=== PATIENT | male | born 1955 | race Caucasian/White ===

== ENCOUNTER 2018-08-22 08:56 | Day surgery (SDC) | payer OTHER ==
[2018-08-21 10:38] LABS: BASOPHILS % (AUTO) 0.6 % (0.0-5.0); EOSINOPHILS % (AUTO) 0.7 % (0.0-8.0); HEMATOCRIT 38.9 % (42-54); LYMPHOCYTES % (AUTO) 23.1 % (21.0-51.0); MEAN CORPUSCULAR HEMOGLOBIN 25.5 pg (27.0-33.0); MEAN CORPUSCULAR VOLUME 77.5 fL (79-99); MONOCYTES % (AUTO) 6.5 % (3.0-13.0); NEUTROPHILS % (AUTO) 69.1 % (40.0-77.0); PLATELET COUNT (AUTO) 199 K/uL (130-400); RED BLOOD CELL COUNT(AUTO) 5.03 MIL/uL (4.50-6.20); RED CELL DISTRIBUTION WIDTH 16.2 % (11.0-15.5); WHITE BLOOD COUNT (AUTO) 7.3 K/uL (4.8-10.8)
[2018-08-21 10:45] LABS: CREATININE 0.9 mg/dL (0.5-1.5); POTASSIUM 3.6 mmol/L (3.5-5.1)
[~2018-08-22] VITALS: Ht 170.2 cm; Wt 76.0 kg
[2018-08-22] VITALS (19 sets, daily range): BP systolic 85–126; BP diastolic 50–71
[~2018-08-22 08:56] MED LIST: ALBUTEROL IH; AMLO2.5T3 PO; ASPI-555 PO; ATOR40TA71 PO; DICL2100G TP; FLUO-126 PO; GABA-533 PO; HYDR25TA PO; INSU100V12 SQ; IPRAT IH; LISI-613 PO; METF-444 PO; OMEP20CA10 PO; ROPI3TAB5 PO; VARE1TAB22 PO
[2018-08-22] MEDS ORDERED: LACTATED RINGERS 1000ML 0 ML IV ONE (09:53)
[2018-08-22] MEDS ORDERED: SODIUM CHLORIDE 0.9% 1000ML 1,000 ML IV ONE (10:13)
[2018-08-22] MEDS ORDERED: BUPIVACAINE/EPI/PF 0.25% 30ML VIAL IJ ONE (10:48)
[2018-08-22] MEDS ORDERED: EPINEPHRINE 1 MG/ML 30ML VIAL IJ ONE (10:48)
[2018-08-22] MEDS: CEFAZOLIN SODIUM 1 GM VIAL IVP SCH ×2 (11:11→11:50)
[2018-08-22] MEDS ORDERED: SUCCINYLCHOLINE 200MG/10ML SYR ONE (11:23)
[2018-08-22] MEDS ORDERED: LIDOCAINE PF 2% 5ML ABBOJECT ONE (11:23)
[2018-08-22] MEDS ORDERED: ONDANSETRON HCL 4 MG/2 ML VIAL ONE (11:23)
[2018-08-22] MEDS ORDERED: MIDAZOLAM HCL 1 MG/ML 2ML VIAL ONE (11:24)
[2018-08-22] MEDS ORDERED: NEOSTIGMINE 5MG/5ML SYR IV ONE (11:24)
[2018-08-22] MEDS ORDERED: PROPOFOL 10 MG/ML 20ML VIAL IV ONE (11:24)
[2018-08-22] MEDS ORDERED: ROCURONIUM 10MG/1ML SYR 10 MG/ML ML ONE (11:25)
[2018-08-22] MEDS ORDERED: FENTANYL CITRATE PF 50 MCG/1 ML 2ML VIAL ONE (11:25)
[2018-08-22] MEDS ORDERED: EPHEDRINE SULFATE 50 MG/ML AMPULE ONE (11:57)
[2018-08-22] MEDS ORDERED: PHENYLEPHRINE HCL 10 MG/ML 1ML VIAL IV ONE (12:41)
[2018-08-22] MEDS ORDERED: GLYCOPYRROLATE 1 MG/5 ML SYRINGE ONE (13:52)
[2018-08-22] MEDS ORDERED: SUB TO ALBUTEROL 2.5MG/3ML NEBULES PER P&T IH ONE (13:59)
[2018-08-22] MEDS ORDERED: IPRATROPIUM/ALBUTEROL SULFATE 3 ML SOLUTION IH ONE ×2 (14:27→15:31)
[2018-08-22] MEDS ORDERED: HYDR-309 PO (14:33)
[2018-08-22] MEDS ORDERED: CEPH500B PO (14:33)
== END 2018-08-22 17:25 | disposition home or self-care (01) ==
LOC: DAH 08:56
PROVIDERS: ATTEND Orthopaedic Surgery
DX: S43.51XA Sprain of right acromioclavicular joint, initial encounter (principal); X58.XXXA Exposure to other specified factors, initial encounter; Y93.9 Activity, unspecified; Y92.89 Other specified places as the place of occurrence of the external cause; Y99.9 Unspecified external cause status; M75.101 Unspecified rotator cuff tear or rupture of right shoulder, not specified as traumatic; M75.41 Impingement syndrome of right shoulder; M19.011 Primary osteoarthritis, right shoulder; G89.29 Other chronic pain; Z98.890 Other specified postprocedural states; Z79.899 Other long term (current) drug therapy; K21.9 Gastro-esophageal reflux disease without esophagitis; I25.10 Atherosclerotic heart disease of native coronary artery without angina pectoris; I10 Essential (primary) hypertension; E11.9 Type 2 diabetes mellitus without complications; M19.90 Unspecified osteoarthritis, unspecified site; Z95.1 Presence of aortocoronary bypass graft; Z79.4 Long term (current) use of insulin; Z79.84 Long term (current) use of oral hypoglycemic drugs; Z82.49 Family history of ischemic heart disease and other diseases of the circulatory system; Z83.3 Family history of diabetes mellitus; Z80.49 Family history of malignant neoplasm of other genital organs; Z53.33 Arthroscopic surgical procedure converted to open procedure
CPT/HCPCS: 23120; 23412; 36415; 71045; 80048; 82948 ×2; 85025; 94640 ×2; A4218; A4649 ×2; A4930 ×2; A6204; C1713 ×2; J0171; J0330; J0690; J2001; J2250; J2370; J2405; J2704; J2710; J3010; J3490 ×3; J7030 ×2; J7120

== ENCOUNTER 2019-01-31 21:07 | Emergency (ER) | payer OTHER ==
[~2019-01-31 21:07] MED LIST changes: -AMLO2.5T3 PO; +AMLO2.5T4 PO; +CEPH500B PO; +HYDR-4457 PO
[2019-01-31] MEDS ORDERED: ASPIRIN 325 MG TABLET ONE (21:38)
[2019-01-31 21:42] LABS: EOSINOPHILS % (AUTO) 1.3 % (0.0-8.0); HEMATOCRIT 38.8 % (42-54); LYMPHOCYTES % (AUTO) 31.4 % (21.0-51.0); MEAN CORPUSCULAR HEMOGLOBIN 26.9 pg (27.0-33.0); MEAN CORPUSCULAR HGB CONC 33.6 g/dL (32.0-36.0); MEAN CORPUSCULAR VOLUME 80.2 fL (79-99); MONOCYTES % (AUTO) 5.7 % (3.0-13.0); NEUTROPHILS % (AUTO) 60.6 % (40.0-77.0); NUCLEATED RED BLOOD CELLS 0.1 % (0.0-0.19); PLATELET COUNT (AUTO) 188 K/uL (130-400); RED BLOOD CELL COUNT(AUTO) 4.84 MIL/uL (4.50-6.20); WHITE BLOOD COUNT (AUTO) 7.1 K/uL (4.8-10.8)
[2019-01-31 21:56] LABS: CREATININE 1.2 mg/dL (0.5-1.5); POTASSIUM 4.1 mmol/L (3.5-5.1)
[2019-01-31 21:58] LABS: APPEARANCE,URINE Clear (CLEAR); BILIRUBIN,URINE Negative (NEGATIVE); COLOR,URINE Yellow (YELLOW); GLUCOSE, URINE (UA) >=1000 mg/dL (NEGATIVE); KETONES,URINE Negative (NEGATIVE); LEUKOCYTE ESTERASE ,URINE Negative (NEGATIVE); NITRATE,URINE Negative (NEGATIVE); OCCULT BLOOD,URINE Negative (NEGATIVE); PH,URINE 5.5 (5.0-8.0); PROTEIN,URINE Negative (NEGATIVE)
[2019-01-31 22:00] LABS: ALBUMIN 3.4 g/dL (3.5-5.0); BILIRUBIN,TOTAL 0.3 mg/dL (0.2-1.0); TOTAL PROTEIN, SERUM 7.4 g/dL (6.0-8.3)
[2019-01-31 22:04] LABS: INR 0.93 (0.85-1.15); PARTIAL THROMBOPLASTIN TIME 25.9 SEC (26.3-35.5); PROTHROMBIN TIME 9.8 SEC (9.6-11.6)
[2019-01-31] MEDS ORDERED: HYOSCYAMINE SULFATE 0.125 MG TAB.SUBL SL ONE (23:13)
[2019-01-31] MEDS ORDERED: 0.9% SODIUM CHLORIDE 1000 ML IV BAG IV ONE (23:17)
== END 2019-02-01 00:09 | disposition home or self-care (01) ==
LOC: EDH 21:07
DX: E11.65 Type 2 diabetes mellitus with hyperglycemia (principal); R10.13 Epigastric pain; I25.10 Atherosclerotic heart disease of native coronary artery without angina pectoris; I10 Essential (primary) hypertension; F32.9 Major depressive disorder, single episode, unspecified; Z87.891 Personal history of nicotine dependence
CPT/HCPCS: 36415; 71045; 74176; 80053; 81003; 82150; 82550; 83690; 84484; 85025; 85610; 85730; 93005; 96360; 99284; J7030

== ENCOUNTER → 2019-04-09 | Outpatient (CLI) | payer OTHER | END | disposition home or self-care (01) | LOC: SHCH 07:49 | PROVIDERS: ATTEND Internal Medicine Cardiovascular Disease | DX: I71.9 Aortic aneurysm of unspecified site, without rupture (principal) | CPT/HCPCS: 93978 ==

== ENCOUNTER → 2020-03-08 | Outpatient (CLI) | payer OTHER ==
[~2020-03-08] MED LIST changes: -FLUO-126 PO; +FLUO20CA35 PO; -OMEP20CA10 PO; +OMEP20CA12 PO
== END | disposition home or self-care (01) ==
LOC: SHCH 08:38
PROVIDERS: ATTEND Internal Medicine Cardiovascular Disease
DX: I71.4 Abdominal aortic aneurysm, without rupture (principal)
CPT/HCPCS: 93978

== ENCOUNTER → 2021-03-22 | Outpatient (CLI) | payer OTHER ==
[~2021-03-22] MED LIST changes: -ASPI-555 PO; +ASPI-556 PO; -LISI-613 PO; +LISI20TA24 PO
== END | disposition home or self-care (01) ==
LOC: OIH 13:49
PROVIDERS: ATTEND Internal Medicine Cardiovascular Disease
DX: R06.00 Dyspnea, unspecified (principal); Z95.1 Presence of aortocoronary bypass graft
CPT/HCPCS: 71046

== ENCOUNTER → 2021-06-01 | Outpatient (CLI) | payer OTHER | END | disposition home or self-care (01) | LOC: SHCH 10:56 | PROVIDERS: ATTEND Internal Medicine Cardiovascular Disease | DX: I25.10 Atherosclerotic heart disease of native coronary artery without angina pectoris (principal); I51.7 Cardiomegaly; R55 Syncope and collapse; I10 Essential (primary) hypertension; E78.5 Hyperlipidemia, unspecified; E11.9 Type 2 diabetes mellitus without complications; F17.210 Nicotine dependence, cigarettes, uncomplicated; Z95.1 Presence of aortocoronary bypass graft | CPT/HCPCS: 93306; 93356 ==

== ENCOUNTER → 2021-06-03 | Outpatient (CLI) | payer OTHER ==
[~2021-06-03] VITALS: Ht 167.6 cm; Wt 78.0 kg
[~2021-06-03] MED LIST changes: +REGADENOSON 0.4 MG/5 ML PF SYG IVP SCH
== END | disposition home or self-care (01) ==
LOC: SHCH 08:35
PROVIDERS: ATTEND Internal Medicine Cardiovascular Disease
DX: I25.9 Chronic ischemic heart disease, unspecified (principal); I25.10 Atherosclerotic heart disease of native coronary artery without angina pectoris
CPT/HCPCS: 78452; 93017; 96374; A9500 ×2; J2785

== ENCOUNTER → 2021-06-13 | Outpatient (CLI) | payer OTHER ==
[~2021-06-13] MED LIST changes: -REGADENOSON 0.4 MG/5 ML PF SYG IVP SCH
== END | disposition home or self-care (01) ==
LOC: RAH 07:36
PROVIDERS: ATTEND Internal Medicine Cardiovascular Disease
DX: I70.0 Atherosclerosis of aorta (principal); I77.811 Abdominal aortic ectasia
CPT/HCPCS: 76775

== ENCOUNTER 2021-07-05 05:54 | Observation (INO) | payer OTHER ==
[2021-06-30 10:41] LABS: APPEARANCE,URINE Clear (CLEAR); BILIRUBIN,URINE Negative (NEGATIVE); COLOR,URINE Yellow (YELLOW); GLUCOSE, URINE (UA) >=1000 mg/dL (NEGATIVE); KETONES,URINE Negative (NEGATIVE); LEUKOCYTE ESTERASE ,URINE Negative (NEGATIVE); NITRATE,URINE Negative (NEGATIVE); OCCULT BLOOD,URINE Negative (NEGATIVE); PH,URINE 5.5 (5.0-8.0); PROTEIN,URINE Negative (NEGATIVE)
[2021-06-30 10:42] LABS: BASOPHILS % (AUTO) 0.6 % (0.0-5.0); EOSINOPHILS % (AUTO) 1.4 % (0.0-8.0); HEMATOCRIT 51.3 % (42-54); MEAN CORPUSCULAR HEMOGLOBIN 28.3 pg (27.0-33.0); MEAN CORPUSCULAR HGB CONC 33.1 g/dL (32.0-36.0); MEAN CORPUSCULAR VOLUME 85.4 fL (79-99); MONOCYTES % (AUTO) 5.9 % (3.0-13.0); NEUTROPHILS % (AUTO) 69.7 % (40.0-77.0); PLATELET COUNT (AUTO) 165 K/uL (130-400); RED BLOOD CELL COUNT(AUTO) 6.01 MIL/uL (4.50-6.20); RED CELL DISTRIBUTION WIDTH 15.3 % (11.0-15.5); WHITE BLOOD COUNT (AUTO) 8.1 K/uL (4.8-10.8)
[2021-06-30 10:45] LABS: CREATININE 1.2 mg/dL (0.5-1.5); POTASSIUM 4.3 mmol/L (3.5-5.1)
[2021-06-30 10:49] LABS: INR 1.01 (0.85-1.15)
[2021-06-30 10:50] LABS: PARTIAL THROMBOPLASTIN TIME 27.7 SEC (26.3-35.5)
[2021-06-30 10:53] LABS: BACTERIA,URINE None Seen /HPF (None Seen); RBC,URINE 0-1 /HPF (0-1); SQUAMOUS EPITHELIAL CELL,UR 0-2 /HPF (0-2); WBC,URINE 0-1 /HPF (0-1)
[2021-07-05] VITALS (23 sets, daily range): BP systolic 118–148; BP diastolic 45–84
[~2021-07-05] VITALS: Ht 167.6 cm; Wt 76.2 kg
[~2021-07-05 05:54] MED LIST changes: -ALBUTEROL IH; -AMLO2.5T4 PO; +ASPI-1443 PO; -ASPI-556 PO; -CEPH500B PO; +CETI-89 PO; -DICL2100G TP; +EMPA25TA PO; +EZET10TA48 PO; +FERS325 PO; -FLUO20CA35 PO; -GABA-533 PO; -HYDR-4457 PO; +INSLAN SQ; +INSU100I3 SQ; -INSU100V12 SQ; -IPRAT IH; -METF-444 PO; +METO-391 PO; -OMEP20CA12 PO; +OMEP40CA21 PO; +TRAZ-187 PO; -VARE1TAB22 PO; +VENL-191 PO
[2021-07-05] MEDS ORDERED: 0.9%NACL 1000ML 1,000 ML IV ONE (06:06)
[2021-07-05] MEDS ORDERED: MIDAZOLAM HCL 1 MG/ML 2ML VIAL ONE (07:12)
[2021-07-05] MEDS ORDERED: LIDOCAINE HCL 400MG/20ML VIAL ONE (07:12)
[2021-07-05] MEDS ORDERED: HEPARIN 10,000 UNIT/10ML (1,000 UNIT/ML) VIAL ONE (07:12)
[2021-07-05] MEDS ORDERED: IOHEXOL-350 50ML VIAL IV ONE (07:12)
[2021-07-05] MEDS ORDERED: IOHEXOL 350 MG/ML 100ML INFUS..BTL IV ONE (07:12)
[2021-07-05] MEDS ORDERED: CLOPIDOGREL 300MG TAB ONE (08:32)
[2021-07-05] MEDS ORDERED: ACETAMINOPHEN WITH CODEINE 1 TAB TAB PO PRN (09:00)
[2021-07-05] MEDS ORDERED: TEMAZEPAM 30 MG CAP PO PRN (09:00)
[2021-07-05] MEDS ORDERED: MORPHINE 5 MG/ML VIAL (5MG OR GREATER DOSE) IVP SCH (09:00)
[2021-07-05] MEDS ORDERED: NITROGLYCERIN 50MG/D5W 250ML 1 BOT IV PRN (09:00)
[2021-07-05] MEDS ORDERED: ONDANSETRON 4MG INJ IVP SCH (09:00)
[2021-07-05] MEDS: CLOPIDOGREL 75MG TAB PO SCH (09:00)
[2021-07-05] MEDS ORDERED: ONDANSETRON 4MG INJ IVP PRN (09:00)
[2021-07-05] MEDS ORDERED: ATROPINE 1MG SYG IVP ONE (12:19)
[2021-07-05] MEDS: ACETAMINOPHEN WITH CODEINE 1 TAB TAB PO PRN ×2 (13:12→20:25)
[2021-07-05] MEDS: PANTOPRAZOLE 40 MG TAB DR PO SCH (15:30)
[2021-07-05] MEDS: ASPIRIN 81MG CHEW TAB PO SCH (15:30)
[2021-07-05] MEDS ORDERED: INSULIN LISPRO 100 UNIT/ML 3ML SQ SCH (16:30)
[2021-07-05] MEDS ORDERED: TRAZODONE HCL 100 MG TABLET PO SCH (21:00)
[2021-07-05] MEDS ORDERED: ROPINIROLE HCL 1 MG TABLET PO SCH (21:00)
[2021-07-05] MEDS ORDERED: EZETIMIBE 10 MG TAB PO SCH (21:00)
[2021-07-06 03:42] LABS: HEMATOCRIT 46.8 % (42-54); MEAN CORPUSCULAR HGB CONC 32.5 g/dL (32.0-36.0); MEAN CORPUSCULAR VOLUME 86.3 fL (79-99); RED BLOOD CELL COUNT(AUTO) 5.42 MIL/uL (4.50-6.20); RED CELL DISTRIBUTION WIDTH 14.8 % (11.0-15.5); WHITE BLOOD COUNT (AUTO) 8.8 K/uL (4.8-10.8)
[2021-07-06 03:59] LABS: CREATININE 1.3 mg/dL (0.5-1.5); POTASSIUM 3.5 mmol/L (3.5-5.1)
[2021-07-06 04:34] VITALS: BP 126/58
[2021-07-06] MEDS ORDERED: CLOP75TA32 PO (07:35)
[2021-07-06 08:00] VITALS: BP 108/70
[2021-07-06] MEDS ORDERED: INSULIN LISPRO 100 UNIT/ML 3ML SQ SCH (08:00)
[2021-07-06] MEDS: ASPIRIN 81MG CHEW TAB PO SCH (08:31)
[2021-07-06] MEDS: PANTOPRAZOLE 40 MG TAB DR PO SCH (08:33)
[2021-07-06] MEDS: CLOPIDOGREL 75MG TAB PO SCH (08:33)
[2021-07-06] MEDS ORDERED: **HM**(Empagliflozin (Jardiance) 25 MG PO SCH (09:00)
[2021-07-06] MEDS ORDERED: VENLAFAXINE HCL 75 MG TAB PO SCH (09:00)
[2021-07-06] MEDS ORDERED: ASPIRIN 81 MG EC TAB PO SCH (09:00)
[2021-07-06] MEDS ORDERED: LISINOPRIL 20 MG TABLET PO SCH (09:00)
[2021-07-06] MEDS ORDERED: METOPROLOL SUCCINATE 50 MG TAB.SR.24H PO SCH (09:00)
[2021-07-06] MEDS ORDERED: FERROUS SULFATE 325 MG TABLET.DR PO SCH (09:00)
[2021-07-06] MEDS ORDERED: CETIRIZINE HCL 5 MG TABLET PO SCH (09:00)
[2021-07-06] MEDS ORDERED: INSULIN GLARGINE 100 UNITS/ML 10 ML VIAL SQ SCH (09:00)
[2021-07-06] MEDS ORDERED: HYDROCHLOROTHIAZIDE 25 MG TABLET PO SCH (09:00)
[2021-07-06] MEDS ORDERED: ATORVASTATIN 40 MG TABLET PO SCH (09:00)
== END 2021-07-06 12:30 | disposition home or self-care (01) ==
LOC: DAH 05:54 → DAHIP 05:55 → DAH 05:55 → UNDOADMOB 05:55 → 2DH 14:44 → DAHIP 14:44 → UNDODISOB 07-06 12:30
PROVIDERS: ADMIT Internal Medicine Cardiovascular Disease; ATTEND Internal Medicine Cardiovascular Disease
DX: I25.10 Atherosclerotic heart disease of native coronary artery without angina pectoris (principal); I11.0 Hypertensive heart disease with heart failure; I50.22 Chronic systolic (congestive) heart failure; E11.9 Type 2 diabetes mellitus without complications; E78.5 Hyperlipidemia, unspecified; M19.90 Unspecified osteoarthritis, unspecified site; F17.210 Nicotine dependence, cigarettes, uncomplicated; Z79.02 Long term (current) use of antithrombotics/antiplatelets; Z79.4 Long term (current) use of insulin; Z79.82 Long term (current) use of aspirin; Z79.899 Other long term (current) drug therapy; Z95.1 Presence of aortocoronary bypass graft; Z98.890 Other specified postprocedural states
CPT/HCPCS: 36415 ×3; 71045; 80048 ×2; 80061; 81001; 82948 ×4; 85025; 85027; 85347 ×2; 85610; 85730 ×2; 93005 ×2; 93459; 96360; 96361; 96372; A4215; A4216; A4221; A4222; A4223 ×3; A4335; A4606; A4663; A6260; A6402; C1769; C1874; C1887 ×3; C1894; C9604; G0378 ×31; J1644 ×3; J3490; J7030; Q9965 ×2; Q9967 ×2; J0461; J2250; J2270

== ENCOUNTER 2021-09-16 09:00 | Observation (INO) | payer OTHER ==
[2021-09-14 13:19] LABS: BASOPHILS % (AUTO) 0.8 % (0.0-5.0); HEMATOCRIT 48.1 % (42-54); LYMPHOCYTES % (AUTO) 22.9 % (21.0-51.0); MEAN CORPUSCULAR HEMOGLOBIN 29.3 pg (27.0-33.0); MEAN CORPUSCULAR HGB CONC 32.6 g/dL (32.0-36.0); MEAN CORPUSCULAR VOLUME 89.9 fL (79-99); MONOCYTES % (AUTO) 5.3 % (3.0-13.0); NEUTROPHILS % (AUTO) 69.7 % (40.0-77.0); PLATELET COUNT (AUTO) 158 K/uL (130-400); RED BLOOD CELL COUNT(AUTO) 5.35 MIL/uL (4.50-6.20); RED CELL DISTRIBUTION WIDTH 14.2 % (11.0-15.5); WHITE BLOOD COUNT (AUTO) 7.7 K/uL (4.8-10.8)
[2021-09-14 13:24] LABS: APPEARANCE,URINE Clear (CLEAR); BILIRUBIN,URINE Negative (NEGATIVE); COLOR,URINE Yellow (YELLOW); GLUCOSE, URINE (UA) >=1000 mg/dL (NEGATIVE); KETONES,URINE Negative (NEGATIVE); LEUKOCYTE ESTERASE ,URINE Negative (NEGATIVE); NITRATE,URINE Negative (NEGATIVE); OCCULT BLOOD,URINE Negative (NEGATIVE); PH,URINE 5.5 (5.0-8.0); PROTEIN,URINE Negative (NEGATIVE); UROBILINOGEN,URINE 0.2 mg/dL (0.2-1.0)
[2021-09-14 13:30] LABS: CREATININE 1.2 mg/dL (0.5-1.5)
[2021-09-14 13:32] LABS: BACTERIA,URINE Rare /HPF (None Seen); RBC,URINE 0-1 /HPF (0-1); SQUAMOUS EPITHELIAL CELL,UR Rare /HPF (0-2); WBC,URINE 0-1 /HPF (0-1)
[2021-09-14 13:36] LABS: INR 1.01 (0.85-1.15)
[2021-09-14 13:38] LABS: PARTIAL THROMBOPLASTIN TIME 27.6 SEC (26.3-35.5)
[2021-09-15 11:10] VITALS: BP 125/62
[~2021-09-16] VITALS: Ht 167.6 cm; Wt 72.4 kg
[2021-09-16] VITALS (10 sets, daily range): BP systolic 102–155; BP diastolic 60–76
[~2021-09-16 09:00] MED LIST changes: +0.9% NACL 500ML IV.SOLN 500 ML IV SCH; +ALBU1.252 IH; +AMLO2.5T4 PO; +CHOL100046 PO; +CLOP75TA32 PO; +FLUT15.87 NS; +FOLI0.8T2 PO; -LISI20TA24 PO; +LISI40TA9 PO; -METO-391 PO; +METO-408 PO
[2021-09-16] MEDS ORDERED: NITROGLYCERIN 2 MG VIAL IV ONE (13:10)
[2021-09-16] MEDS ORDERED: HEPARIN 10,000 UNIT/10ML (1,000 UNIT/ML) VIAL ONE (13:10)
[2021-09-16] MEDS ORDERED: FENTANYL CITRATE PF 50 MCG/1 ML 2ML VIAL ONE (13:11)
[2021-09-16] MEDS ORDERED: MIDAZOLAM HCL 1 MG/ML 2ML VIAL ONE (13:11)
[2021-09-16] MEDS ORDERED: IODIXANOL 320 MG/ML 100 ML VIAL ONE (13:11)
[2021-09-16] MEDS ORDERED: LIDOCAINE HCL 400MG/20ML VIAL ONE (13:11)
[2021-09-16] MEDS ORDERED: CLOPIDOGREL 300MG TAB ONE (14:51)
[2021-09-16] MEDS ORDERED: GLUCAGON 1MG KIT 1 MG ML IM PRN (17:00)
[2021-09-16] MEDS ORDERED: DEXTROSE 50%-WATER 50 ML DISP.SYRIN IV PRN (17:00)
[2021-09-16] MEDS ORDERED: IPRATROPIUM/ALBUTEROL SULFATE 3 ML SOLUTION IH PRN (19:00)
[2021-09-16] MEDS ORDERED: ONDANSETRON 4MG INJ IV PRN (19:00)
[2021-09-16] MEDS ORDERED: ACETAMINOPHEN 325 MG TAB PO PRN ×2 (19:00)
[2021-09-16] MEDS ORDERED: NITROGLYCERIN 0.4 MG SL TAB SL PRN (19:00)
[2021-09-16] MEDS: INSULIN HUMULIN R 100 UNIT/ML 3ML SQ SCH (20:40)
[2021-09-16] MEDS: FAMOTIDINE 20MG TAB PO SCH (21:21)
[2021-09-16] MEDS ORDERED: TRAZODONE HCL 100 MG TABLET PO SCH (23:45)
[2021-09-16] MEDS ORDERED: ATORVASTATIN 40 MG TABLET PO SCH (23:45)
[2021-09-16] MEDS ORDERED: ROPINIROLE HCL 1 MG TABLET PO SCH (23:45)
[2021-09-17] VITALS: BP 136/60
[2021-09-17 04:00] VITALS: BP 124/62
[2021-09-17 05:57] LABS: HEMATOCRIT 46.8 % (42-54); MEAN CORPUSCULAR HEMOGLOBIN 28.7 pg (27.0-33.0); MEAN CORPUSCULAR HGB CONC 32.5 g/dL (32.0-36.0); MEAN CORPUSCULAR VOLUME 88.5 fL (79-99); RED BLOOD CELL COUNT(AUTO) 5.29 MIL/uL (4.50-6.20); RED CELL DISTRIBUTION WIDTH 13.8 % (11.0-15.5); WHITE BLOOD COUNT (AUTO) 8.3 K/uL (4.8-10.8)
[2021-09-17 06:01] LABS: HEMOGLOBIN A1C 6.9 % (4.0-6.0)
[2021-09-17 06:14] LABS: CREATININE 1.2 mg/dL (0.5-1.5); MAGNESIUM 1.8 mg/dL (1.80-2.40); POTASSIUM 4.5 mmol/L (3.5-5.1)
[2021-09-17] MEDS: INSULIN HUMULIN R 100 UNIT/ML 3ML SQ SCH ×3 (07:35→16:30)
[2021-09-17 08:00] VITALS: BP 136/61
[2021-09-17] MEDS: INSULIN LISPRO 100 UNIT/ML 3ML SQ SCH ×3 (08:00→17:34)
[2021-09-17] MEDS: FAMOTIDINE 20MG TAB PO SCH (08:29)
[2021-09-17] MEDS ORDERED: CETIRIZINE HCL 5 MG TABLET PO SCH (09:00)
[2021-09-17] MEDS ORDERED: FERROUS SULFATE 325 MG TABLET.DR PO SCH (09:00)
[2021-09-17] MEDS ORDERED: VENLAFAXINE HCL XR 37.5 MG CAP PO SCH (09:00)
[2021-09-17] MEDS ORDERED: AMLODIPINE 2.5 MG TAB PO SCH (09:00)
[2021-09-17] MEDS ORDERED: HYDROCHLOROTHIAZIDE 25 MG TABLET PO SCH (09:00)
[2021-09-17] MEDS ORDERED: LISINOPRIL 40 MG TABLET PO SCH (09:00)
[2021-09-17] MEDS ORDERED: METOPROLOL SUCCINATE 50 MG TAB.SR.24H PO SCH (09:00)
[2021-09-17] MEDS ORDERED: EMPAGLIFLOZIN 25MG PO SCH (09:00)
[2021-09-17] MEDS ORDERED: FLUTICASONE PROPIONATE 50MCG/SPRAY 16 GM BOTTLE EN SCH (09:00)
[2021-09-17] MEDS ORDERED: VITAMIN D 25 MCG PO SCH (09:00)
[2021-09-17] MEDS ORDERED: CLOPIDOGREL 75MG TAB PO SCH (09:00)
[2021-09-17] MEDS ORDERED: ENOXAPARIN SODIUM 30 MG/0.3 ML SQ SCH (09:00)
[2021-09-17] MEDS ORDERED: Vitamin B Complex/Vit C/Folic Acid PO SCH (09:00)
[2021-09-17] MEDS ORDERED: ASPIRIN 81MG CHEW TAB PO SCH (09:00)
[2021-09-17] MEDS ORDERED: INSULIN GLARGINE 100 UNITS/ML 10 ML VIAL SQ SCH (09:00)
[2021-09-17 13:28] VITALS: BP 136/66
[2021-09-17 16:33] VITALS: BP 134/75
[2021-09-17] MEDS ORDERED: IOHEXOL-350 75 ML VIAL IV ONE (17:26)
[2021-09-17] MEDS ORDERED: TRAZODONE HCL 100 MG TABLET PO SCH (21:00)
[2021-09-17] MEDS ORDERED: EZETIMIBE 10 MG TAB PO SCH (21:00)
[2021-09-17] MEDS ORDERED: ROPINIROLE HCL 1 MG TABLET PO SCH (21:00)
[2021-09-17] MEDS ORDERED: ATORVASTATIN 40 MG TABLET PO SCH (21:00)
[2021-10-14] MEDS ORDERED: LISI40TA9 PO (11:41)
[2021-10-14] MEDS ORDERED: METO-391 PO (11:41)
[2021-10-14] MEDS ORDERED: FERS325 PO (11:41)
[2021-10-14] MEDS ORDERED: VENL-63 PO (11:41)
[2021-10-14] MEDS ORDERED: INSU100I3 SQ (11:46)
[2021-10-14] MEDS ORDERED: INSU100I32 SQ (11:46)
[2021-10-14] MEDS ORDERED: ROPI3TAB5 PO (11:46)
[2021-10-14] MEDS ORDERED: METH4TAB16 PO (11:46)
[2021-10-14] MEDS ORDERED: ATOR-2 PO (11:46)
[2021-10-14] MEDS ORDERED: FOLI1CAP23 PO (11:46)
[2021-10-14] MEDS ORDERED: TRAZ-187 PO (11:46)
[2021-10-14] MEDS ORDERED: INSLAN SQ (11:46)
[2021-10-14] MEDS ORDERED: CLOP75TA14 PO (11:46)
== END 2021-09-17 20:00 | disposition home or self-care (01) ==
LOC: DAH 09:00 → 4BH 09:01 → DAH 09:01
PROVIDERS: ADMIT Internal Medicine; ATTEND Internal Medicine
DX: I73.9 Peripheral vascular disease, unspecified (principal); I25.10 Atherosclerotic heart disease of native coronary artery without angina pectoris; E78.5 Hyperlipidemia, unspecified; E11.51 Type 2 diabetes mellitus with diabetic peripheral angiopathy without gangrene; I11.0 Hypertensive heart disease with heart failure; I50.22 Chronic systolic (congestive) heart failure; I71.4 Abdominal aortic aneurysm, without rupture; J44.9 Chronic obstructive pulmonary disease, unspecified; M19.90 Unspecified osteoarthritis, unspecified site; F17.210 Nicotine dependence, cigarettes, uncomplicated; K21.9 Gastro-esophageal reflux disease without esophagitis; G25.81 Restless legs syndrome; D64.9 Anemia, unspecified; I70.8 Atherosclerosis of other arteries; Z95.1 Presence of aortocoronary bypass graft; Z96.653 Presence of artificial knee joint, bilateral; Z79.899 Other long term (current) drug therapy; Z71.6 Tobacco abuse counseling
CPT/HCPCS: 36415 ×2; 37227; 71045; 71275; 75716; 80048 ×2; 81001; 82948 ×6; 83036; 83735; 85025; 85027; 85347; 85610; 85730; 93005; 96372 ×2; 99406; A4215; A4216; A4221; A4222; A4223 ×3; A4606; A4663; C1725; C1760; C1769; C1874; C1884; C1887; C1893; C1894 ×2; C2623 ×2; G0378 ×25; J1644 ×4; J1650; J1815 ×2; J2250; J3010; J3490 ×2; Q9967 ×2; 99156; 99157

== ENCOUNTER 2021-10-17 06:02 | Day surgery (SDC) | payer OTHER ==
[2021-10-13 14:16] LABS: BASOPHILS % (AUTO) 0.2 % (0.0-5.0); HEMATOCRIT 48.7 % (42-54); LYMPHOCYTES % (AUTO) 11.3 % (21.0-51.0); MEAN CORPUSCULAR HEMOGLOBIN 29.8 pg (27.0-33.0); MEAN CORPUSCULAR HGB CONC 33.3 g/dL (32.0-36.0); MEAN CORPUSCULAR VOLUME 89.5 fL (79-99); MONOCYTES % (AUTO) 2.9 % (3.0-13.0); NEUTROPHILS % (AUTO) 85.2 % (40.0-77.0); PLATELET COUNT (AUTO) 174 K/uL (130-400); RED BLOOD CELL COUNT(AUTO) 5.44 MIL/uL (4.50-6.20); RED CELL DISTRIBUTION WIDTH 14.5 % (11.0-15.5); WHITE BLOOD COUNT (AUTO) 11.9 K/uL (4.8-10.8)
[2021-10-13 14:26] LABS: CREATININE 1.2 mg/dL (0.5-1.5); POTASSIUM 4.3 mmol/L (3.5-5.1)
[2021-10-13 14:29] LABS: INR 0.98 (0.85-1.15); PROTHROMBIN TIME 10.7 SEC (9.6-11.6)
[2021-10-13 14:30] LABS: PARTIAL THROMBOPLASTIN TIME 26.2 SEC (26.3-35.5)
[2021-10-13 14:34] LABS: APPEARANCE,URINE Clear (CLEAR); BILIRUBIN,URINE Negative (NEGATIVE); COLOR,URINE Yellow (YELLOW); GLUCOSE, URINE (UA) >=1000 mg/dL (NEGATIVE); KETONES,URINE Negative (NEGATIVE); LEUKOCYTE ESTERASE ,URINE Negative (NEGATIVE); NITRATE,URINE Negative (NEGATIVE); OCCULT BLOOD,URINE Negative (NEGATIVE); PROTEIN,URINE Negative (NEGATIVE); UROBILINOGEN,URINE 0.2 mg/dL (0.2-1.0)
[2021-10-13 14:45] LABS: BACTERIA,URINE Rare /HPF (None Seen); RBC,URINE 0-1 /HPF (0-1); SQUAMOUS EPITHELIAL CELL,UR Rare /HPF (0-2); WBC,URINE 0-1 /HPF (0-1)
[2021-10-17] VITALS (10 sets, daily range): BP systolic 112–144; BP diastolic 51–78
[~2021-10-17] VITALS: Ht 167.6 cm; Wt 75.7 kg
[~2021-10-17 06:02] MED LIST changes: -ALBU1.252 IH; -AMLO2.5T4 PO; +ATOR-2 PO; -ATOR40TA71 PO; +CLOP75TA14 PO; -CLOP75TA32 PO; -FOLI0.8T2 PO; +FOLI1CAP23 PO; +INSU100I32 SQ; +METH4TAB16 PO; +METO-391 PO; -METO-408 PO; -VENL-191 PO; +VENL-63 PO
[2021-10-17] MEDS ORDERED: 0.9%NACL 1000ML 1,000 ML IV ONE (07:08)
[2021-10-17] MEDS ORDERED: IOHEXOL 350 MG/ML 100ML INFUS..BTL IV ONE (07:27)
[2021-10-17] MEDS ORDERED: NITROGLYCERIN 2 MG VIAL IV ONE ×2 (07:27→08:30)
[2021-10-17] MEDS ORDERED: IOHEXOL-350 50ML VIAL IV ONE (07:27)
[2021-10-17] MEDS ORDERED: HEPARIN 10,000 UNIT/10ML (1,000 UNIT/ML) VIAL ONE ×2 (07:27→08:30)
[2021-10-17] MEDS ORDERED: LIDOCAINE HCL 400MG/20ML VIAL ONE ×2 (07:27→08:31)
[2021-10-17] MEDS ORDERED: BIVALIRUDIN 250 MG/VIAL IV ONE (07:27)
[2021-10-17] MEDS ORDERED: FENTANYL CITRATE PF 50 MCG/1 ML 2ML VIAL ONE ×2 (07:33→08:31)
[2021-10-17] MEDS ORDERED: MIDAZOLAM HCL 1 MG/ML 2ML VIAL ONE ×2 (07:33→08:31)
[2021-10-17] MEDS ORDERED: NICARDIPINE 25MG INJ IV ONE (08:30)
[2021-10-17] MEDS ORDERED: IODIXANOL 320 MG/ML 100 ML VIAL ONE (08:31)
[2021-10-17] MEDS ORDERED: CLOPIDOGREL 300MG TAB ONE (10:16)
[2021-10-17] MEDS ORDERED: 0.9%NACL 1000ML 1,000 ML IV SCH (12:00)
== END 2021-10-17 15:35 | disposition home or self-care (01) ==
LOC: DAH 06:02
PROVIDERS: ATTEND Internal Medicine Cardiovascular Disease
DX: E11.51 Type 2 diabetes mellitus with diabetic peripheral angiopathy without gangrene (principal); I73.9 Peripheral vascular disease, unspecified; I25.10 Atherosclerotic heart disease of native coronary artery without angina pectoris; I10 Essential (primary) hypertension; E78.5 Hyperlipidemia, unspecified; M19.90 Unspecified osteoarthritis, unspecified site; Z95.1 Presence of aortocoronary bypass graft; Z96.653 Presence of artificial knee joint, bilateral; Z79.82 Long term (current) use of aspirin; Z79.01 Long term (current) use of anticoagulants; Z79.899 Other long term (current) drug therapy
CPT/HCPCS: 36415 ×2; 71045; 75625; 75716; 75774; 80048; 81001; 85025; 85347 ×2; 85610; 85730; 93005; A4215; A4216; A4221; A4222; A4223 ×3; A4606; A4663; C1725; C1727; C1760; C1769 ×4; C1893; C1894 ×3; C9764; J1644 ×4; J2250; J3010; J3490 ×5; J7030; Q9967; 99156; 99157; J0583

== ENCOUNTER → 2021-12-28 | Outpatient (CLI) | payer OTHER ==
[~2021-12-28] MED LIST changes: -0.9% NACL 500ML IV.SOLN 500 ML IV SCH; -INSU100I32 SQ; +IOHEXOL-350 75 ML VIAL IV ONE
== END | disposition home or self-care (01) ==
LOC: RAH 09:36
PROVIDERS: ATTEND Internal Medicine Cardiovascular Disease
DX: I71.4 Abdominal aortic aneurysm, without rupture (principal); I70.8 Atherosclerosis of other arteries; K57.90 Diverticulosis of intestine, part unspecified, without perforation or abscess without bleeding; N28.1 Cyst of kidney, acquired; M47.815 Spondylosis without myelopathy or radiculopathy, thoracolumbar region; Z96.653 Presence of artificial knee joint, bilateral; Z98.890 Other specified postprocedural states
CPT/HCPCS: 75635; Q9967

== ENCOUNTER 2022-02-27 05:52 | Day surgery (SDC) | payer OTHER ==
[2022-02-23 10:28] LABS: BASOPHILS % (AUTO) 0.5 % (0.0-5.0); EOSINOPHILS % (AUTO) 0.9 % (0.0-8.0); HEMATOCRIT 56.3 % (42-54); LYMPHOCYTES % (AUTO) 25.4 % (21.0-51.0); MEAN CORPUSCULAR HEMOGLOBIN 28.1 pg (27.0-33.0); MEAN CORPUSCULAR HGB CONC 32.3 g/dL (32.0-36.0); MEAN CORPUSCULAR VOLUME 86.9 fL (79-99); MONOCYTES % (AUTO) 5.4 % (3.0-13.0); NEUTROPHILS % (AUTO) 67.4 % (40.0-77.0); PLATELET COUNT (AUTO) 167 K/uL (130-400); RED BLOOD CELL COUNT(AUTO) 6.48 MIL/uL (4.50-6.20); RED CELL DISTRIBUTION WIDTH 14.2 % (11.0-15.5); WHITE BLOOD COUNT (AUTO) 7.8 K/uL (4.8-10.8)
[2022-02-23 10:35] LABS: APPEARANCE,URINE Clear (CLEAR); BILIRUBIN,URINE Negative (NEGATIVE); COLOR,URINE Yellow (YELLOW); GLUCOSE, URINE (UA) >=1000 mg/dL (NEGATIVE); KETONES,URINE Negative (NEGATIVE); LEUKOCYTE ESTERASE ,URINE Negative (NEGATIVE); NITRATE,URINE Negative (NEGATIVE); OCCULT BLOOD,URINE Negative (NEGATIVE); PROTEIN,URINE Negative (NEGATIVE); UROBILINOGEN,URINE 0.2 mg/dL (0.2-1.0)
[2022-02-23 10:38] LABS: CREATININE 1.1 mg/dL (0.5-1.5); POTASSIUM 3.6 mmol/L (3.5-5.1)
[2022-02-23 10:40] LABS: INR 0.98 (0.85-1.15); PROTHROMBIN TIME 10.7 SEC (9.6-11.6)
[2022-02-23 10:43] LABS: BACTERIA,URINE Rare /HPF (None Seen); RBC,URINE 0-1 /HPF (0-1); SQUAMOUS EPITHELIAL CELL,UR Rare /HPF (0-2); WBC,URINE 0-1 /HPF (0-1)
[2022-02-24 09:16] VITALS: BP 130/70
[~2022-02-27] VITALS: Ht 167.6 cm; Wt 75.5 kg
[2022-02-27] VITALS (9 sets, daily range): BP systolic 111–123; BP diastolic 55–67
[~2022-02-27 05:52] MED LIST changes: -ATOR-2 PO; +FENO145T26 PO; -FLUT15.87 NS; -FOLI1CAP23 PO; +FOLI1TAB85 PO; +GABA300C PO; +HYDR-3422 PO; -IOHEXOL-350 75 ML VIAL IV ONE; +MELA5CAP PO; -METH4TAB16 PO; -OMEP40CA21 PO; -TRAZ-187 PO
[2022-02-27] MEDS ORDERED: 0.9%NACL 1000ML 1,000 ML IV ONE (06:32)
[2022-02-27] MEDS ORDERED: SODIUM BICARB 50MEQ 50ML VIAL 50 ML ONE (07:17)
[2022-02-27] MEDS ORDERED: NITROGLYCERIN 50MG VIAL ONE (07:17)
[2022-02-27] MEDS ORDERED: MEPERIDINE-PF 25 MG/ML SYG ONE ×2 (07:18→09:24)
[2022-02-27] MEDS ORDERED: MIDAZOLAM HCL 1 MG/ML 2ML VIAL ONE ×2 (07:18→09:24)
[2022-02-27] MEDS ORDERED: IOHEXOL-350 50ML VIAL IV ONE (07:19)
[2022-02-27] MEDS ORDERED: IODIXANOL 320 MG/ML 100 ML VIAL ONE ×2 (07:20→07:38)
[2022-02-27] MEDS ORDERED: LIDOCAINE HCL 1% MDV 50ML VIAL ONE (07:20)
[2022-02-27] MEDS ORDERED: CLOPIDOGREL 300MG TAB ONE (08:22)
[2022-02-27] MEDS ORDERED: ASPIRIN 325MG EC TAB PO ONE (08:23)
[2022-02-27] MEDS ORDERED: HEPARIN 10,000 UNIT/10ML (1,000 UNIT/ML) VIAL ONE (08:23)
[2022-02-27] MEDS ORDERED: GLUCAGON 1MG KIT 1 MG ML IM PRN (10:30)
[2022-02-27] MEDS ORDERED: DEXTROSE 50%-WATER 50 ML DISP.SYRIN IV PRN (10:30)
[2022-02-27] MEDS: 0.9%NACL 1000ML 1,000 ML IV SCH ×2 (10:30→14:23)
== END 2022-02-27 14:26 | disposition home or self-care (01) ==
LOC: DAH 05:52 → UNDOADMIN 05:52 → DAHIP 05:52 → EDSTATUS 09:00 → DAH 14:26
PROVIDERS: ATTEND Internal Medicine Cardiovascular Disease
DX: I70.213 Atherosclerosis of native arteries of extremities with intermittent claudication, bilateral legs (principal); I71.4 Abdominal aortic aneurysm, without rupture; E11.65 Type 2 diabetes mellitus with hyperglycemia; I25.10 Atherosclerotic heart disease of native coronary artery without angina pectoris; I10 Essential (primary) hypertension; Z79.01 Long term (current) use of anticoagulants; Z79.899 Other long term (current) drug therapy; Z98.890 Other specified postprocedural states; Z95.1 Presence of aortocoronary bypass graft
CPT/HCPCS: 36415 ×2; 37221; 37223; 71045; 75716; 80048; 81001; 82948 ×2; 85025; 85347 ×2; 85610; 85730; 86850 ×2; 86900 ×2; 86901 ×2; 86923; 93005; A4215; A4216; A4221; A4222; A4223 ×3; A4606; A4663; C1725 ×2; C1760 ×2; C1769 ×3; C1876 ×3; C1887; C1894 ×2; J1644 ×4; J2175 ×2; J2250 ×2; J3490 ×3; J7030 ×2; Q9967 ×2; 99156; 99157

== ENCOUNTER 2022-05-01 05:53 | Day surgery (SDC) | payer OTHER ==
[2022-04-27 10:12] LABS: BASOPHILS % (AUTO) 0.7 % (0.0-5.0); HEMATOCRIT 58.3 % (42-54); LYMPHOCYTES % (AUTO) 26.6 % (21.0-51.0); MEAN CORPUSCULAR HEMOGLOBIN 27.9 pg (27.0-33.0); MEAN CORPUSCULAR HGB CONC 32.6 g/dL (32.0-36.0); MEAN CORPUSCULAR VOLUME 85.7 fL (79-99); MONOCYTES % (AUTO) 5.9 % (3.0-13.0); NEUTROPHILS % (AUTO) 65.5 % (40.0-77.0); PLATELET COUNT (AUTO) 189 K/uL (130-400); WHITE BLOOD COUNT (AUTO) 7.3 K/uL (4.8-10.8)
[2022-04-27 10:20] LABS: INR 1.02 (0.85-1.15); PROTHROMBIN TIME 11.1 SEC (9.6-11.6)
[2022-04-27 10:22] LABS: PARTIAL THROMBOPLASTIN TIME 27.6 SEC (26.3-35.5)
[2022-04-27 10:23] LABS: CREATININE 1.3 mg/dL (0.5-1.5)
[2022-04-28 11:29] VITALS: BP 148/81
[2022-05-01] VITALS (10 sets, daily range): BP systolic 110–126; BP diastolic 54–68
[~2022-05-01] VITALS: Ht 167.6 cm; Wt 75.5 kg
[~2022-05-01 05:53] MED LIST changes: +ATOR40TA69 PO; -CETI-89 PO; +OMEP40CA21 PO
[2022-05-01] MEDS ORDERED: 0.9%NACL 1000ML 1,000 ML IV ONE (06:22)
[2022-05-01] MEDS ORDERED: HEPARIN 10,000 UNIT/10ML (1,000 UNIT/ML) VIAL ONE (07:03)
[2022-05-01] MEDS ORDERED: NICARDIPINE 25MG INJ IV ONE (07:03)
[2022-05-01] MEDS ORDERED: FENTANYL CITRATE PF 50 MCG/1 ML 2ML VIAL ONE (07:04)
[2022-05-01] MEDS ORDERED: NITROGLYCERIN 50MG VIAL ONE (07:04)
[2022-05-01] MEDS ORDERED: LIDOCAINE HCL 400MG/20ML VIAL ONE (07:04)
[2022-05-01] MEDS ORDERED: MIDAZOLAM HCL 1 MG/ML 2ML VIAL ONE (07:04)
[2022-05-01] MEDS ORDERED: IODIXANOL 320 MG/ML 100 ML VIAL ONE (07:04)
[2022-05-01] MEDS ORDERED: 0.9%NACL 1000ML 1,000 ML IV SCH (08:00)
[2022-05-01] MEDS ORDERED: CLOPIDOGREL 300MG TAB ONE (09:12)
== END 2022-05-01 14:15 | disposition home or self-care (01) ==
LOC: DAH 05:53
PROVIDERS: ATTEND Internal Medicine Cardiovascular Disease
DX: I70.202 Unspecified atherosclerosis of native arteries of extremities, left leg (principal); I10 Essential (primary) hypertension; E78.5 Hyperlipidemia, unspecified; E11.9 Type 2 diabetes mellitus without complications; I25.10 Atherosclerotic heart disease of native coronary artery without angina pectoris; Z95.1 Presence of aortocoronary bypass graft; Z72.0 Tobacco use; Z79.01 Long term (current) use of anticoagulants; Z79.82 Long term (current) use of aspirin; Z79.899 Other long term (current) drug therapy
CPT/HCPCS: 36415; 71045; 75710; 80048; 82948; 85025; 85610; 85730; 93005; A4215; A4216; A4221; A4222; A4223 ×3; A4606; A4663; C1727; C1769; C1887 ×2; C1894 ×2; C9772; J1644 ×3; J2250; J3010; J3490 ×3; J7030; Q9967; 99156; 99157

== ENCOUNTER → 2022-09-22 | Outpatient (CLI) | payer OTHER ==
[~2022-09-22] MED LIST changes: +IOHEXOL 350 MG/ML 100ML INFUS..BTL IV ONE; +IOHEXOL-350 50ML VIAL IV ONE
== END | disposition home or self-care (01) ==
LOC: RAH 10:25
PROVIDERS: ATTEND Internal Medicine Cardiovascular Disease
DX: I73.9 Peripheral vascular disease, unspecified (principal)
CPT/HCPCS: 75635; Q9967 ×2

== ENCOUNTER 2022-11-03 05:45 | Day surgery (SDC) | payer OTHER ==
[2022-11-01 09:55] LABS: BASOPHILS % (AUTO) 0.5 % (0.0-5.0); EOSINOPHILS % (AUTO) 1.7 % (0.0-8.0); HEMATOCRIT 48.8 % (42-54); LYMPHOCYTES % (AUTO) 23.9 % (21.0-51.0); MEAN CORPUSCULAR HEMOGLOBIN 28.1 pg (27.0-33.0); MEAN CORPUSCULAR HGB CONC 32.4 g/dL (32.0-36.0); MEAN CORPUSCULAR VOLUME 86.8 fL (79-99); MONOCYTES % (AUTO) 5.5 % (3.0-13.0); NEUTROPHILS % (AUTO) 67.9 % (40.0-77.0); PLATELET COUNT (AUTO) 148 K/uL (130-400); RED BLOOD CELL COUNT(AUTO) 5.62 MIL/uL (4.50-6.20); RED CELL DISTRIBUTION WIDTH 13.9 % (11.0-15.5); WHITE BLOOD COUNT (AUTO) 6.5 K/uL (4.8-10.8)
[2022-11-01 10:07] LABS: CREATININE 1.3 mg/dL (0.5-1.5); POTASSIUM 3.9 mmol/L (3.5-5.1)
[2022-11-01 10:43] LABS: INR 1.01 (0.85-1.15)
[2022-11-01 10:44] LABS: PARTIAL THROMBOPLASTIN TIME 27.2 SEC (26.3-35.5)
[2022-11-01 14:04] VITALS: BP 128/64
[2022-11-03] VITALS (10 sets, daily range): BP systolic 113–128; BP diastolic 57–72
[~2022-11-03] VITALS: Ht 165.1 cm; Wt 82.6 kg
[~2022-11-03 05:45] MED LIST changes: +CLOP-31 PO; -CLOP75TA14 PO; -FERS325 PO; -GABA300C PO; -INSLAN SQ; -IOHEXOL 350 MG/ML 100ML INFUS..BTL IV ONE; -IOHEXOL-350 50ML VIAL IV ONE; +PREG100C PO
[2022-11-03] MEDS ORDERED: 0.9%NACL 1000ML 1,000 ML IV ONE (06:18)
[2022-11-03] MEDS ORDERED: LIDOCAINE HCL 1% 20 ML VIAL ONE (07:03)
[2022-11-03] MEDS ORDERED: NITROGLYCERIN 50MG VIAL ONE (07:04)
[2022-11-03] MEDS ORDERED: HEPARIN 10,000 UNIT/10ML (1,000 UNIT/ML) VIAL ONE (07:04)
[2022-11-03] MEDS ORDERED: IODIXANOL 320 MG/ML 100 ML VIAL ONE (07:05)
[2022-11-03] MEDS ORDERED: FENTANYL CITRATE PF 50 MCG/1 ML 2ML VIAL ONE (07:06)
[2022-11-03] MEDS ORDERED: MIDAZOLAM HCL 1 MG/ML 2ML VIAL ONE (07:06)
[2022-11-03] MEDS ORDERED: GLUCAGON 1MG KIT 1 MG ML IM PRN (09:30)
[2022-11-03] MEDS ORDERED: DEXTROSE 50%-WATER 50 ML DISP.SYRIN IV PRN (09:30)
[2022-11-03] MEDS ORDERED: 0.9%NACL 1000ML 1,000 ML IV SCH (09:30)
== END 2022-11-03 15:15 | disposition home or self-care (01) ==
LOC: DAH 05:45
PROVIDERS: ATTEND Internal Medicine Cardiovascular Disease
DX: I70.211 Atherosclerosis of native arteries of extremities with intermittent claudication, right leg (principal); I71.40 Abdominal aortic aneurysm, without rupture, unspecified; I70.92 Chronic total occlusion of artery of the extremities; E11.51 Type 2 diabetes mellitus with diabetic peripheral angiopathy without gangrene; I10 Essential (primary) hypertension; E78.5 Hyperlipidemia, unspecified; I25.10 Atherosclerotic heart disease of native coronary artery without angina pectoris; J44.9 Chronic obstructive pulmonary disease, unspecified; M19.90 Unspecified osteoarthritis, unspecified site; F17.210 Nicotine dependence, cigarettes, uncomplicated; Z86.73 Personal history of transient ischemic attack (TIA), and cerebral infarction without residual deficits; Z95.1 Presence of aortocoronary bypass graft; Z82.49 Family history of ischemic heart disease and other diseases of the circulatory system; Z98.890 Other specified postprocedural states; Z83.3 Family history of diabetes mellitus; Z72.89 Other problems related to lifestyle; Z79.01 Long term (current) use of anticoagulants; Z79.899 Other long term (current) drug therapy
CPT/HCPCS: 80048; 85025; 85610; 85730; 36415; 71045; 93005; 75716; 36246; 82948 ×2; C1894 ×2; C1760; C1769; J3010; J7030; J2250; J1644; J3490; Q9967; A4215; A4222; A4221; A4663; A4216; A4606; A4223 ×3; 96360; 96361; 99156; 99157

== ENCOUNTER 2023-06-24 10:23 | Emergency (ER) | payer OTHER ==
[~2023-06-24] VITALS: Ht 167.6 cm; Wt 81.6 kg
[~2023-06-24 10:23] MED LIST changes: +ROPI3TAB21 PO; -ROPI3TAB5 PO
[2023-06-24] MEDS ORDERED: HYDR-3421 PO (11:49)
[2023-06-24] MEDS ORDERED: HYDROXYZINE 25 MG TABLET PO SCH (12:00)
[2023-06-24 12:50] VITALS: BP 136/85; PULSE 78; RESP 18; O2SAT 98
== END 2023-06-24 12:54 | disposition home or self-care (01) ==
LOC: EDH 10:23
DX: L40.9 Psoriasis, unspecified (principal); L29.9 Pruritus, unspecified; E11.9 Type 2 diabetes mellitus without complications; E78.00 Pure hypercholesterolemia, unspecified; I10 Essential (primary) hypertension; I25.10 Atherosclerotic heart disease of native coronary artery without angina pectoris; F32.A Depression, unspecified; Z79.02 Long term (current) use of antithrombotics/antiplatelets; Z79.82 Long term (current) use of aspirin; Z79.84 Long term (current) use of oral hypoglycemic drugs; Z79.899 Other long term (current) drug therapy; Z95.1 Presence of aortocoronary bypass graft

== ENCOUNTER 2023-09-02 11:29 | Emergency (ER) | payer OTHER ==
[~2023-09-02] VITALS: Ht 162.6 cm; Wt 80.7 kg
[~2023-09-02 11:29] MED LIST changes: +CEPH500B PO; +HYDR-3421 PO; +MUPI22OI2 TP
[2023-09-02 11:36] VITALS: BP 138/78; PULSE 76; RESP 18; O2SAT 99
== END 2023-09-02 12:04 | disposition home or self-care (01) ==
LOC: EDH 11:29
DX: S61.412D Laceration without foreign body of left hand, subsequent encounter (principal); I10 Essential (primary) hypertension; E11.9 Type 2 diabetes mellitus without complications; E78.00 Pure hypercholesterolemia, unspecified; Z79.82 Long term (current) use of aspirin; Z79.84 Long term (current) use of oral hypoglycemic drugs; Z79.899 Other long term (current) drug therapy; Z95.1 Presence of aortocoronary bypass graft; Z98.890 Other specified postprocedural states; X58.XXXD Exposure to other specified factors, subsequent encounter
CPT/HCPCS: 99281

== ENCOUNTER → 2023-09-12 | Outpatient (CLI) | payer OTHER | END | disposition home or self-care (01) | LOC: SHCH 13:08 | PROVIDERS: ATTEND Internal Medicine Cardiovascular Disease | DX: I87.2 Venous insufficiency (chronic) (peripheral) (principal) | CPT/HCPCS: 93970 ==